=== PATIENT | male | born 1955 | race Caucasian/White ===

== ENCOUNTER 2017-02-02 17:22 | Inpatient (IN) | payer OTHER ==
[~2017-02-02] VITALS: Ht 175.3 cm; Wt 78.4 kg
--- NOTE | 2017-02-02 17:50 | NUR ---
ADMIT TO [facility]transferred from [facility] Report received from Harris/DEBRA at [place] ED. Pt brought onto unit via Ambulance service at 1750. Pt able to stand but unsteady and weak. SBA for safety for all OOB activity. Pt denies pain and SOB. Exhibits shaking arm tremors R>L. BG in room is 100. Pt having no immediate s/sx of distress. Pt oriented to unit, room and call light. Belongings placed in closet, non-skid Y socks on. MD informed of pt arrival, awaiting orders. Addendum: 02/02/17 at 2030 by MIGUEL CARTER RN Orders in, IVF started, seizure precautions in place, yunior alarm on, tele placed: SR 80. MED REC completed - pt bad historian, Harris/DEBRA at [place] stated that Med Rec was accurate and in chart. Med rec done according chart, pt reported last taking of medications. Admit finished.
[2017-02-02 17:58] VITALS: BP 122/71; PULSE 77; RESP 20; O2SAT 99
[2017-02-02] MEDS ORDERED: Polyethylene Glycol (PEG) 17 Gm Powder PO PRN (18:40)
[2017-02-02] MEDS ORDERED: Alum-Mag Hydrox-Simeth 30 mL Suspension PO PRN (18:40)
[2017-02-02] MEDS ORDERED: Ondansetron 2 mg/mL 2 mL Inj IVPUSH PRN (18:40)
[2017-02-02] MEDS ORDERED: Thiamine Inj 100 MG, Folic Acid Inj 1 MG, Magnesium Sulfate 50% Inj 2 GM, Multivitamins... IV ONE ×5 (18:45)
--- NOTE | 2017-02-02 19:29 | HP ---
[address] [address] HISTORY AND PHYSICAL PATIENT: DAVIN TOVAR : 1955 MR#: [id number] ADMIT: 02/02/2017 JOB ID: [id number] DATE OF SERVICE: 02/02/2017 PRIMARY CARE PROVIDER: Dr. Murphy out of [facility]. CHIEF COMPLAINT: Increasing fatigue and malaise. HISTORY OF PRESENT ILLNESS: This is a 61-year-old male who presented to [facility] as he had abnormal labs that were drawn on Wednesday. He did see his primary care provider last week, , as he was feeling more fatigued and noted that he had elevated BUN and creatinine (I do not have those labs in front of me), and mildly elevated LFTs. He then had repeat labs done on Wednesday which were more elevated and patient was told by his primary care provider to present to the emergency department. In the emergency department, he was found to be mildly hypotensive 95/55, heart rate of 70, temperature was 98.2. The patient denies any history of fevers, chills or cough. He is a current smoker; half pack per day. In the emergency department, his labs returned back showing a white count of 9.2, hematocrit 34.0. UA was negative for any acute abnormalities. His sodium was 128, potassium 3.4, bicarb was 25, alk phos was 164, AST was 1607, ALT was 740, magnesium 2.1, phosphorus 4.3, BUN was 66, creatinine 4.4, with a calculated GFR 14.28. Alcohol level was noted to be 32. UDS was negative. The patient did get some IV fluids while in the emergency department here. The emergency department doctor at [place] talked Dr. Weir, Nephrology, who accepted the patient in transfer to be admitted to the hospitalist service. PAST MEDICAL HISTORY: Significant for hypertension, history of hyperlipidemia, history of EtOH dependence. MEDICATIONS: Upon admission: 1. ASA 325 mg p.o. daily. 2. Atorvastatin 40 mg p.o. daily. 3. Cholecalciferol 4000 units daily. 4. Hydrochlorothiazide 25 mg p.o. daily. 5. Irbesartan 300 mg p.o. daily. 6. Metoprolol succinate, unknown dose daily. 7. [place]-3 three tabs daily. ALLERGIES: No known drug allergies. SOCIAL HISTORY: Lives alone. Smoking half pack per day. Alcohol: Several mixed drinks daily. Prior to that he was drinking beer. FAMILY MEDICAL HISTORY: No history of diabetes. There is a history of hypertension. REVIEW OF SYSTEMS: Does have some nausea. Denies any vomiting. Denies any abdominal pain. Denies any alteration of bowel movements. All other review of systems are reviewed and negative except for as in HPI. PHYSICAL EXAMINATION: Constitutional: A middle-aged male who appears slightly tremulous. Head: Normocephalic, atraumatic. Eyes: PERR, LADC, and EOMI. Mouth: No lesions. Neck: No adenopathy. Chest is clear to auscultation. Cor: Regular rate and rhythm. S1, S2 without murmur. Abdomen is soft, nontender. Bowel sounds present. Extremity exam reveals no pedal edema. Skin reveals no rashes. Psych: Mood and affect are appropriate. Neuro: He is alert and oriented x3, motor strength is intact bilaterally. No focal deficits noted. LABORATORY DATA: Labs as above. Also, to include white count 9.2, hemoglobin 11.9, hematocrit 34.0, MCV 98, 73% polys, 16% lymphs. Sodium 128, potassium 3.4, chloride 89, bicarb 25, calcium 8.6, total protein 6.0, albumin 2.8, total bili 1.6. Alk phos 164, AST 1607, ALT 740, magnesium 2.1. Phosphorus 4.0. Ammonia level 26. ASSESSMENT AND PLAN: 1. Acute kidney injury, present on admission. Check abdominal ultrasound. Repeat UA. Continue with IV fluids. Repeat labs in the a.m. Dr. Weir to see patient in a.m. 2. Acute elevated liver enzymes, present on admission. Does not have any elevation in bilirubin significantly, slight elevation in alkaline phosphatase. Of note, AST is much greater than the ALT which suggests alcoholic liver disease. Possible alcoholic hepatitis. Will check acute viral hepatitis panel. Will also check abdominal ultrasound. Monitor LFTs. Check PT, PTT. 3. Possible alcohol withdrawal, acute, present on admission. Will place on CIWA protocol. Give IV banana bag, per protocol. 4. Deep venous thrombosis prophylaxis. Will go ahead and use sequential compression devices. 5. Code status: Patient is FULL CODE. 6. Hypertension, chronic, present on admission. Will monitor blood pressure and not continue his irbesartan in light of acute renal failure along with not continuing his hydrochlorothiazide with acute kidney failure. TIME SPENT: 60 minutes.
[2017-02-02 19:52] VITALS: PULSE 78
--- NOTE | 2017-02-02 20:10 | DRSVH ---
PROCEDURE: US ABDOMEN INDICATIONS: yash,elevated LFTs TECHNIQUE: Real-time scanning was performed of the abdominal and retroperitoneal organs, with image documentatio n. COMPARISON: None. FINDINGS: Liver length: 14.39 cm Gallbladder Wall Thickness: 1.60 mm CHD: 4.80 mm CBD: 7.30 mm Spleen length: 8.29 cm Right kidney length: 10.02 cm Left kidney length: 10.79 cm Aorta(Proximal): 2.28 cm Aorta(Mid): 1.62 cm Aorta(Distal): 1.40 cm RCIA: 9.80 mm LCIA: 8.70 mm Liver: Homogeneous increased hepatic echotexture. No hepatic masses. Gallbladder: No cholelithiasis. Normal gallbladder wall thickness. No pericholecystic fluid. Negativ e sonographic Winter's sign. Biliary ducts: Intrahepatic bile ducts are non-dilated. Extrahepatic bile duct caliber is normal. Normal is 6-7 mm or less in diameter, or 10 mm or less post-cholecystectomy. Pancreas: Visualized portions of the pancreas are sonographically normal. Spleen: Spleen is normal in size and homogeneous in echotexture. Kidneys: Kidneys are normal in size and echotexture. No hydronephrosis or nephrolithiasis. No thee d masses. Aorta: Visualized aorta is normal in caliber at less than 3 cm. Iliacs: Proximal common iliac arteries are normal in caliber at less than 2.5 cm. IVC: Intrahepatic inferior vena cava is patent. Miscellaneous: No free abdominal fluid. IMPRESSION: Fatty infiltration of the liver. Dictated by: Wilton Mix M.D. on 02/02/2017 at 20:07 Approved by: Wilton Mix M.D. on 02/02/2017 at 20:08
[2017-02-02 20:11] VITALS: BP 111/62; PULSE 79; RESP 18; O2SAT 96
[2017-02-02] MEDS ORDERED: HYDR25TA4 PO (20:19)
[2017-02-02] MEDS ORDERED: OMEG100T PO (20:19)
[2017-02-02] MEDS ORDERED: IRBE300T18 PO (20:19)
[2017-02-02] MEDS ORDERED: ASPI325T32 PO (20:19)
[2017-02-02] MEDS ORDERED: METO200T4 PO (20:19)
[2017-02-02] MEDS ORDERED: ATOR40TA69 PO (20:19)
[2017-02-02] MEDS ORDERED: CHOL500051 PO (20:19)
[2017-02-02 21:15] LABS: INR 1.28 ratio
[2017-02-02 21:30] LABS: Magnesium 2.2 mg/dL (1.6-2.6); Phosphorus 3.2 mg/dL (2.5-4.9); TROPONIN T 0.01 ug/L (0.0-0.011)
[2017-02-02] MEDS: 0.9% Sodium Chloride 1,000 ML IV SCH (21:54)
[2017-02-03] VITALS (7 sets, daily range): BP systolic 114–129; BP diastolic 65–77; PULSE 69–76; RESP 18–20; O2SAT 96–97
--- NOTE | 2017-02-03 05:17 | NUR ---
NOC CIWA pt is alert and oriented. Scored 3 on CIWA. Seizure pads as per ciwa protocol. Pt is alert and oriented. Mildly anxious. No visible tremors but is felt. No visual, auditory, tactile hallucinations. Denies chest pain, sob, n/v or abd discomfort. IVF NS running 100ml/hr as ordered. Continuing to monitor.
[2017-02-03 05:43] LABS: BASOPHILS % (AUTO) 0.6 % (0-3); EOSINOPHILS % (AUTO) 3.1 % (0-5); MONOCYTES % (AUTO) 11.3 % (4-12); Mean Corpuscular Hemoglobin 33.6 pg (27.0-35.0); Mean Corpuscular Volume 91.9 fL (81-100); NEUTROPHILS % (AUTO) 58.9 % (40-74); Platelet Count 173 bil/L (150-400)
[2017-02-03 06:05] LABS: Magnesium 2.3 mg/dL (1.6-2.6)
[2017-02-03 07:12] LABS: Hepatitis A Antibody IgM Negative (Negative); Hepatitis B Core Antibody IgM Negative (Negative)
[2017-02-03 08:10] LABS: Vitamin B12 >1999 pg/mL (211-946)
[2017-02-03] MEDS ORDERED: KCl 40 mEq/D5W 500 mL 40 MEQ in IV Premix 1 EACH IV ONE (08:50)
[2017-02-03] MEDS: 0.9% Sodium Chloride 1,000 ML IV SCH ×2 (08:55→14:40)
[2017-02-03] MEDS: Multivit-Miner-Folic Acid-Iron Tablet PO SCH (08:55)
--- NOTE | 2017-02-03 09:03 | PCM.PNMED ---
Subjective Date of Service Feb 03, 2017 Subjective He is feeling better. Less tremor, no hallucinations. No nausea. No coughm, chest pain or dyspnea. No dysuria or flank pain. No overnight events noted. Exam Vital Signs Vital Sign - Last Date Time Temp Pulse Resp B/P Pulse Ox O2 Delivery O2 Flow Rate FiO2 02/03/17 04:46 36.8 69 18 129/77 97 Room Air Intake and Output 02/02/17 02/02/17 02/03/17 Cumulative From/Thru 15:00 23:00 07:00 02/02/17 18:01 - 02/03/17 06:21 Intake Total 473 ml 2392 ml 2865 ml Output Total 325 ml 1350 ml 1675 ml Balance 148 ml 1042 ml 1190 ml Intake Oral 473 ml 600 ml 1073 ml IV Total 1792 ml 1792 ml Output Urine Total 325 ml 1350 ml 1675 ml # Voids 1 1 # Bowel Movements 0 1 1 Exam Alert and oriented. Not confused. Fluent speech. Anicteric sclera Lungs clear with normal effort Heart regular, without murmur Abdomen soft and non distended. No leg edema Left arm ecchymosis IVs and Medications Medications Reviewed: Medications were reviewed in detail Lab and Diagnostics Result Diagram: 02/03/1751402/03/17514 Assessment & Plan 1. Acute kidney injury, present on admission. Check abdominal ultrasound. Repeat UA. Continue with IV fluids. The patient likely has a component of CKD as well. Repeat BMP at noon after IVF. 2. Acute elevated liver enzymes (alcohol induced hepatitis), present on admission. Does not have any elevation in bilirubin significantly, slight elevation in alkaline phosphatase. Of note, AST is much greater than the ALT which suggests alcoholic liver disease. Possible alcoholic hepatitis. Will check acute viral hepatitis panel. Will also check abdominal ultrasound. Monitor LFTs. Check PT, PTT. -follow clinically 3. Mild aalcohol withdrawal, acute, present on admission and improving. Will place on CIWA protocol. Give IV banana bag, per protocol. Continue today. Appears to be mild. 4. Deep venous thrombosis prophylaxis. Will go ahead and use sequential compression devices. 5. Code status: Patient is FULL CODE. 6. Essential hypertension, chronic, present on admission. Will monitor blood pressure and not continue his irbesartan in light of acute renal failure along with not continuing his hydrochlorothiazide with acute kidney failure. TIME SPENT: 60 minutes. Inpatient status, 2 nights stay expected. Probable discharge to home. Po Albrecht MD Feb 03, 2017 09:03
--- NOTE | 2017-02-03 10:13 | CONS ---
[address] [address] CONSULTATION REPORT PATIENT: DAVIN TOVAR : 1955 MR#: [id number] ADMIT: 02/02/2017 JOB ID: [id number] CORRECTED REPORT: DATE OF SERVICE: 02/03/2017 HISTORY OF PRESENT ILLNESS: The patient is a 61-year-old, white male, who was transferred to [facility] from [facility] for acute kidney injury and possible alcoholic hepatitis. Renal consultation is being sought for further evaluation of his acute kidney injury. I was contacted yesterday by the emergency department at [place] where the patient had come to after being referred from his primary care doctor for acute kidney injury. At that time, his BUN and creatinine were 66 and 4.4, and he was hypotensive but did respond to normal saline. After consultation with the emergency department physician, I recommended that he be continued on fluids, and be transferred here for further evaluation. The patient states that he had some blood drawn about a week ago by his family physician, and he was contacted subsequent to this that his blood tests were abnormal. He was asked to come in this past Wednesday for a followup blood test which once again was abnormal and subsequently yesterday he was referred to the emergency department for further evaluation. In the emergency department, his AST was 1607, ALT was 740, BUN and creatinine were 66 and 4.4, respectively. His alcohol level was also positive. However, his urine drug screen was negative. The patient is somewhat of an inconsistent historian and, apparently was feeling somewhat fatigued for several days prior to admission. He denies any severe headache, scotomas, amaurosis fugax, nausea, vomiting, diarrhea, decreased appetite, cough, wheezing, orthopnea, paroxysmal nocturnal dyspnea, or lower extremity edema. Furthermore, he states that he has not had any skin rashes, upper respiratory tract infection symptoms, arthralgias, or joint effusions. He denies any fever or chills. He denies a history of any prior renal problems. There is no history of any voiding difficulties, proteinuria, hematuria, recurrent urinary tract infections, renal lithiasis, prior history of hepatitis, lupus, diabetes, rheumatoid arthritis, or other associated renal problems. He does have a history of hypertension and hyperlipidemia for which he takes atorvastatin, hydrochlorothiazide, irbesartan, and metoprolol. Furthermore, he states that he does smoke less than one pack of cigarettes a day and drinks several mixed drinks per day. He also admits to occasional marijuana use. Upon arrival to [facility], he was started on IV normal saline and CIWA protocol. Abdominal ultrasound was obtained and showed some fatty infiltration, increased echogenicity of the liver without evidence of any cholecystitis or cholelithiasis. His renal ultrasound was negative. His blood pressure has improved with ongoing hydration, as has his laboratory values. This morning, his sodium is 133, potassium 3.1, BUN and creatinine were 47 and 2.94, and his liver function studies are markedly improved. PAST MEDICAL HISTORY: Significant for hypertension, hyperlipidemia, alcoholism. He denies a history of any prior stroke, seizure, asthma, emphysema, tuberculosis, myocardial infarction, coronary artery disease, congestive heart failure, thyroid illness, malignancy, gastric or colonic problems. PAST SURGICAL HISTORY: Negative. ALLERGIES: He is not allergic to any food or any medications. SOCIAL HISTORY: He lives alone and smokes less than a pack a day, and states that he drinks several mixed drinks daily. He also states he uses marijuana occasionally. He is active in his activities of daily living and works full-time. FAMILY HISTORY: Remarkable for hypertension, but no history of any prior diabetes or renal disease. REVIEW OF SYSTEMS: As detailed above in the HPI. MEDICATIONS: Also detailed above in the HPI. He denies the use of any acetaminophen or nonsteroidal anti-inflammatories, and denies any herbal medications. PHYSICAL EXAMINATION: Revealed a tanned, somewhat zahira complected, 61-year-old, gentleman, who was alert and oriented x3, in no distress at time of my evaluation. His blood pressure is 122/70, with a pulse rate of 70. HEENT examination is remarkable for multiple telangiectasias throughout his face. Sclerae, cornea, conjunctivae, pupils, and extraocular muscles were within normal limits. Neck is supple without adenopathy, thyromegaly or jugular venous distention. Lungs are clear to auscultation. Heart is regular and rhythmical with a soft systolic murmur. Abdomen is soft, with diminished bowel sounds noted. There was no tenderness, rebound, guarding, masses, and there appeared to be some mild hepatomegaly. There was no splenomegaly or other masses noted. Extremities did not show any evidence of any clubbing, cyanosis, or edema. Half and half nails were noted. Skin turgor was slightly diminished and there was no evidence of any rashes or any joint effusions. LABORATORY EXAMINATION: As noted above. His sodium is 133, potassium 3.1, chloride 95, bicarbonate 19, BUN and creatinine were 47 and 2.94, glucose was 96, calcium was 7.5. Total bili was 1.4. AST is lower at 906, with an ALT of 482 and alkaline phosphatase at 159. His albumin is 2.7. Triglycerides were 1119, with a cholesterol of 144. Lipase is slightly elevated at 182, and this most likely is reflective of his acute kidney injury. Hepatitis profile was negative for hepatitis A, B or C. His white count this morning is 7.8, hemoglobin of 10.3, hematocrit 28.2. Red cell indices, platelet count and differential were normal. There is no urinalysis at the time of my dictation. IMPRESSION: 1. Acute dehydration, which is resolving. 2. Acute kidney injury, which is resolving. 3. Acute transaminitis secondary to hypotension, but also possible alcoholic hepatitis. 4. Metabolic acidosis. 5. Hypokalemia. 6. Hypertension with hypertensive heart disease and hypertensive nephrosclerosis. RECOMMENDATIONS: I would like to continue him on IV hydration and replace electrolytes as needed. I would also like to get an echocardiogram to see if there is a coexistent alcoholic cardiomyopathy. We need to continue to follow him, not only to follow his laboratory parameters but also for possible alcohol withdrawal. Once again, I would like to thank you for allowing me to participate in the care of this most pleasant, interesting patient. I will be following him closely with you. Corrected by BIBI 02/11/17 at 8:22am DOS.
--- NOTE | 2017-02-03 10:58 | NUR ---
Social Work-initial assessment/multidisciplinary rounds: Data:See initial assessment. Pt is a 61 y/o male who was admitted on 02/02/17 for acute renal failure per H&P. Pt's insurance is [employer] and PCP is Ally Murphy MD. EMR Reviewed. Pt's readmission score is 3-high risk. SW met with pt to discuss discharge planning, SW role explained. Pt is alert and oriented x3. Pt resides at home alone in [place] where he remains independent with ADLs. Pt drives and does not use any DME. Pt has no HH or SNF history. Pt has no vermin exterminator care insurance or VA benefits. Pt declining any information regarding DPOA/ advanced directive at this time. Pt has been placed on CIWA, current CIWA is 3. No MD orders for CD assessment at this time. SW provided pt with discharge planning checklist and encouraged pt to call with any questions, phone number placed on white board in room. No concerns noted in morning rounds regarding pt's capacity for self care, from MD television news reporter. Pt to either get a ride from family or pay privately for a taxi at discharge. No anticipated discharge needs. SW will continue to follow if needs arise. Assessment:Pt who is independent at baseline. Plan:Anticipate pt to discharge home when medically stable via POV. No MD orders for CD assessment at this time, SW to follow. No anticipated discharge needs. SW will continue to follow if needs arise. ALICJA Magallon Addendum: 02/03/17 at 1103 by MRAY BEARDEN Amended: Links added.
[2017-02-03 12:54] LABS: Magnesium 2.1 mg/dL (1.6-2.6)
[2017-02-03 13:15] LABS: Phosphorus 0.7 mg/dL (2.5-4.9)
[2017-02-03] MEDS ORDERED: Potassium Phos (mEq) Inj 40 MEQ in Dextrose 5% 500 ML IV ONE (13:30)
--- NOTE | 2017-02-03 19:42 | NUR ---
Mentation/Activity/Electrolytes Pt A/Ox4, continued slightly delayed response but answering questions faster than day upon admit. CIWA score reduced from NOC 3 > 2. Mild tremors. MD in room to evaluate, Seizure pads to be removed per MD. Pt continuing on SBA for OOB activity, little unsteady when up to BR. No near falls during shift. Pt cooperative and follows instruction. Crit Lab called for Phosphate of 0.7. MD paged, orders placed for IV Phosphate bag. Repeat Phos level shows improvement to 1.3. IV continuing to infuse.
--- NOTE | 2017-02-04 00:19 | NUR ---
activity patient prefers to stay in bed at this time declines going to walk. given apple juice. resting supine. care ongoing.
[2017-02-04 00:35] VITALS: BP 139/70; PULSE 75; RESP 20; O2SAT 96
[2017-02-04] MEDS: 0.9% Sodium Chloride 1,000 ML IV SCH ×3 (04:16→20:40)
[2017-02-04 04:18] VITALS: BP 147/76; PULSE 76; RESP 18; O2SAT 97
[2017-02-04 06:12] LABS: Magnesium 1.5 mg/dL (1.6-2.6); Phosphorus 1.7 mg/dL (2.5-4.9)
[2017-02-04] MEDS ORDERED: Magnesium Sulf 4 Gm/100 mL H2O 4 GM in IV Premix 1 EACH IV ONE (07:00)
[2017-02-04] MEDS ORDERED: Potassium Phos (mMol) Inj 30 MMOL in Dextrose 5% 500 ML IV ONE (07:00)
[2017-02-04] MEDS ORDERED: POTASSIUM PHOS IV ONE ×2 (07:20→19:00)
[2017-02-04] MEDS ORDERED: DEXTROSE 5% IV ONE (07:20)
[2017-02-04 08:00] VITALS: PULSE 71
[2017-02-04] MEDS: Multivit-Miner-Folic Acid-Iron Tablet PO SCH (08:02)
[2017-02-04 08:30] VITALS: BP 144/52; PULSE 65; RESP 20; O2SAT 96
--- NOTE | 2017-02-04 11:09 | PCM.PNNEPH ---
Subjective Date of Service Feb 04, 2017 Subjective Overall patient's condition continues to improve. As a result of improvement in his renal function his his electrolytes have had a number of abnormalities which are currently being addressed and replaced. He remains alert and oriented and denies any chest pain, short of breath, but did have some nausea this morning which she relates to eating too much food. In the last 24 hours he has had 3524 in and 1350 out with 650 out already today. This morning his sodium is 136, potassium 3.2, chloride of 100 bicarbonate 22 BUN and creatinine were 23 and 1.83 respectively. His phosphorus morning is 1.7 with a magnesium of 1.5. His liver function studies are still abnormal but continue to trend downward. His ROMEL was negative. Exam Vital Signs Vital Sign - Last Date Time Temp Pulse Resp B/P Pulse Ox O2 Delivery O2 Flow Rate FiO2 02/04/17 08:30 37.2 65 20 144/52 96 Room Air Intake and Output 02/03/17 02/03/17 02/04/17 Cumulative From/Thru 15:00 23:00 07:00 02/02/17 18:01 - 02/04/17 05:46 Intake Total 1132 ml 962 ml 4959 ml Output Total 650 ml 2325 ml Balance 1132 ml 312 ml 2634 ml Intake Oral 200 ml 1273 ml IV Total 1132 ml 762 ml 3686 ml Output Urine Total 650 ml 2325 ml # Voids 0 1 # Bowel Movements 1 Exam HEENT examination was unremarkable. Neck is supple without adenopathy, thyromegaly, or jugular venous distention. Lungs are clear to auscultation. Heart is regular and rhythmical with a soft systolic murmur. Abdomen is soft without any tenderness rebound guarding masses or hepatosplenomegaly. Strongly Eleuterio evidence of any clubbing, cyanosis, or edema. Skin turgor is good nurse no evidence of any rashes. Lab and Diagnostics Result Diagram: 02/03/17 0515 02/04/17 05 Plan Impression Impression #1 dehydration which is resolving #2 acute kidney injury secondary to #1 which is resolving #3 hypokalemia which is resolving number for hypophosphatemia #5 hypomagnesemia and #6 metabolic acidosis #7 hypertension with hypertensive heart disease and hypertensive nephrosclerosis. Recommendations #10 continue to replace his potassium, phosphorus, and magnesium. If this is stable tomorrow we can probably discharge the next 1-2 days. Rashawn Weir DO Feb 04, 2017 11:09
--- NOTE | 2017-02-04 11:31 | DRSVH ---
[facility] [address] [place] [address] Echocardiogram Report Name: DAVIN TOVAR Kike e: 02/03/2017 Height: 6 9 in Hospital Exam Location: [facility] Weight: 1 72 lb Gender: Male BSA: 1.9 m2 : 1955 Age: 61 yrs BP: 122/7 0 mmHg Reason For Study: HTN/KRYSTAL Ordering Physician: HOSPITALIST [facility] Performed By: Bridgette Sotelo Referring Physician: Sathya Ellington Interpretation Summary The left ventricle is normal in size. Left ventricular systolic function is normal. The ejection fraction is estimated to be 55-60%. There are no obvious focal wall motion abnormalities noted but poor endocardial definition reduces the sensitivity for the detection of such. Assessment of diastolic parameters indicates a relaxation abnormality of the left ventricle, consistent with normal filling pressures. The right ventricle is not well visualized. Pulmonary artery pressures cannot be estimated because of the lack of a measurable TR jet velocity. The left atrium is borderline dilated. There is no significant valvular heart disease. The aortic root is normal size. Procedure: A two-dimensional transthoracic echocardiogram with color flow and Doppler was performed. The study quality was technically difficult. A contrast injection of Definity was performed to improve assessment of LV function. There is no prior echocardiogram noted for this patient. The patient was in normal sinus rhythm during the exam. Left Ventricle: The left ventricle is normal in size. There is normal left ventricular wall thickness. Left ventricular systolic function is normal. The ejection fraction is estimated to be 55-60%. There are no obvious focal wall motion abnormalities noted but poor endocardial definition reduces the sensitivity for the detection of such. Assessment of diastolic parameters indicates a relaxation abnormality of the left ventricle, consistent with normal filling pressures. Right Ventricle: The right ventricle is not well visualized. Atria: The left atrium is borderline dilated. The right atrium is normal in size. There is no Doppler evidence for an interatrial shunt. Mitral Valve: The mitral valve is normal. There is trace mitral regurgitation. Aortic Valve: The aortic valve is slightly calcified. The aortic valve is trileaflet. The aortic valve opens well. There is no hemodynamically significant valvular aortic stenosis. No aortic regurgitation is present. Tricuspid Valve: The tricuspid valve is normal. There is a trace or physiologic amount of tricuspid regurgitation. Pulmonary artery pressures cannot be estimated because of the lack of a measurable TR jet velocity. Pulmonic Valve: The pulmonic valve is not well visualized. There is a trace or physiologic amount of pulmonic regurgitation. There is no significant valvular heart disease. Great Vessels: The aortic root is normal size. The ascending aorta is normal in size. The aortic arch could not be visualized. The pulmonary artery is not well visualized, but is probably normal size. The IVC is dilated (diameter is greater than 2.1 cm) yet it collapses greater than 50% with a sniff. This suggests a right atrial pressure of 8 mm Hg. Pericardium/ Pleura There is no pericardial effusion. There is an anterior echo-free space consistent with a fat pad. There is no pleural effusion. MMode/2D Measurements & Calculations LVIDd: 5.0 cm RA long axis LVOT diam LVIDs: 3.4 cm LA A2 area: 19.5 cm FS: 32.8 % LA A4 area: 17.9 cm RA area AoV Opening EPSS: 0.43 cm LA length (vol): 4.5 cm IVSd: 1.0 cm LA vol: 66.6 ml : 16.1 cm Ao root diam LVPWd: 0.94 cm LA vol index RA vol : 47.8 ml asc Aorta RA Diam: 3.3 cm IVC diam: 2.2 cm : 24.7 mm2 LV escobar. diameter/BSA LV sys. diameter/BSA TAPSE: 2.1 cm (cm/m^2): 2.6 (cm/m^2): 1.7 Doppler Measurements & Calculations Ao V2 max MV E max rubén MV E/A: 1.6 PA V2 max : 113.7 cm/sec : 98.5 cm/sec Med Peak E' Rubén : 88.2 cm/sec Ao max PG MV A max rubén PA mean PG : 5.2 mmHg : 59.7 cm/sec E/E' med: 7.4 Ao mean PG MV P1/2t: 51.4 msec Lat Peak E' Rubén PA Accel Time : 0.09 sec LVOT Max Rubén E/E' lat: 7.3 : 97.6 cm/sec E/e' average: 7.4 TOÑO(I,D): 3.4 cm sev ratio MV dec time MV P1/2t max rubén Ao V2 mean LV V1 max PG : 0.17 sec : 76.5 cm/sec Ao V2 VTI: 20.7 cm LV V1 VTI MVA(P1/2t): 4.3 cm2 : 17.6 cm TOÑO(V,D): 3.4 cm2 PA V2 mean TOÑO indexed to BSA : 64.0 cm/sec (cm^2/m^2): 1.7 Reading Physician:PM
[2017-02-04 12:22] VITALS: BP 124/69; PULSE 75; RESP 18; O2SAT 97
--- NOTE | 2017-02-04 14:00 | PCM.PNMED ---
Subjective Date of Service Feb 04, 2017 Subjective Insulin much better today. No alcohol. Symptoms. She denies anxiety, hallucinations. No diarrhea or nausea. His appetite is improving. No shortness of breath fevers. His phosphorus was low yesterday and the day before. He has been repleted on a daily basis and still is 1.7 today. She does recognize that all cause causing significant problem and does not tend to stop. No overnight events noted. Exam Vital Signs Vital Sign - Last Date Time Temp Pulse Resp B/P Pulse Ox O2 Delivery O2 Flow Rate FiO2 02/04/17 12:22 36.8 75 18 124/69 97 Room Air Intake and Output 02/03/17 02/03/17 02/04/17 Cumulative From/Thru 15:00 23:00 07:00 02/02/17 18:01 - 02/04/17 05:46 Intake Total 1132 ml 962 ml 4959 ml Output Total 650 ml 2325 ml Balance 1132 ml 312 ml 2634 ml Intake Oral 200 ml 1273 ml IV Total 1132 ml 762 ml 3686 ml Output Urine Total 650 ml 2325 ml # Voids 0 1 # Bowel Movements 1 Exam Alert and oriented -3, no distress. Fluent speech Anicteric sclera. Lungs are clear with normal rate and effort Heart is regular without murmur gallop or rub Abdomen soft nontender, flat Extremities are free of edema. Skin is free of rash or lesions. IVs and Medications Medications Reviewed: Medications were reviewed in detail Lab and Diagnostics Result Diagram: 02/03/17 0515 02/04/17 0524 Assessment & Plan 1. Acute kidney injury, present on admission. Improving. ultrasound unremarkable. Repeat UA unremarkable. Continue with IV fluids. The patient likely has a component of CKD as well. 2. Acute elevated liver enzymes (alcohol induced hepatitis), present on admission. Improving -follow clinically 3. Mild aalcohol withdrawal, acute, present on admission and resolved. CIWA discontinued. Ativan when necessary anxiety. 4. Hypophosphatemia, present on admission and active. Improving. Continue repletion today with follow-up. 5. Essential hypertension, chronic, present on admission, active and stable. Will monitor blood pressure and not continue his irbesartan in light of acute renal failure along with not continuing his hydrochlorothiazide with acute kidney failure. Continue DVT prophylaxis, ambulate. Inpatient status, 2 nights stay expected. Probable discharge Wednesday to home. Po Albrecht MD Feb 04, 2017 14:00
--- NOTE | 2017-02-04 16:57 | NUR ---
Activity: Encouraged patient throughout day to be ambulating and at least up to chair for meals. Patient states he is comfortable and prefers to stay in bed. However, patient did agree to get up for dinner meal. Tolerating well, call-light within reach, non-skid socks on for safety. Continued encouragement to be OOB for meals and begin ambulating in hallways. Patient agreed.
[2017-02-04] MEDS ORDERED: SODIUM CHLORIDE 0.9% IV ONE (19:00)
[2017-02-04 20:56] VITALS: BP 135/68; PULSE 73; RESP 20; O2SAT 96
--- NOTE | 2017-02-05 01:48 | NUR ---
Potassium / Calcium About assisted through second admin of IV potassium the CMP was drawn and based on results another order was placed for admin @ 19:00 02/04/17 even though potassium was still infusing. Huang paged Dr St to determine if a new CMP should be drawn before admin of 3rd dose. CMP ordered and potassium level determined to be 3.4 mEq, the order indicated any value <4 the third dose should be admin. CMP also returned Calcium @6.7 MD notified and aware of value.
[2017-02-05] MEDS: 0.9% Sodium Chloride 1,000 ML IV SCH ×3 (01:58→23:00)
[2017-02-05 04:17] VITALS: BP 164/79; PULSE 77; RESP 20; O2SAT 97
--- NOTE | 2017-02-05 08:48 | PCM.PNMED ---
Subjective Date of Service Feb 05, 2017 Subjective Patient seen and examined. Alert and oriented X 3. No complaints. Still shaking. Vitals stable. Exam Vital Signs Vital Sign - Last Date Time Temp Pulse Resp B/P Pulse Ox O2 Delivery O2 Flow Rate FiO2 02/05/17 04:17 37.3 77 20 164/79 97 Room Air Intake and Output 02/04/17 02/04/17 02/05/17 Cumulative From/Thru 15:00 23:00 07:00 02/02/17 18:01 - 02/05/17 05:05 Intake Total 2022 ml 6981 ml Output Total 300 ml 2625 ml Balance 1722 ml 4356 ml Intake Oral 822 ml 2095 ml IV Total 1200 ml 4886 ml Output Urine Total 300 ml 2625 ml # Voids 3 4 # Bowel Movements 2 3 Exam Constitutional: A middle-aged male who appears slightly tremulous. Head:Normocephalic, atraumatic. Eyes: PERR, LADC, and EOMI. Mouth: No lesions. Neck: No adenopathy. Chest is clear to auscultation. Cor: Regular rate and rhythm. S1, S2 without murmur. Abdomen is soft, nontender. Bowel sounds present. Extremity exam reveals no pedal edema. Skin reveals no rashes. Psych: Mood and affect are appropriate. Neuro: He is alert and oriented x3, motor strength is intact bilaterally. No focal deficits noted. Lab and Diagnostics Result Diagram: 02/03/17 0502/04/172111 Assessment & Plan 1. Acute kidney injury, present on admission. Improving. ultrasound unremarkable. Repeat UA unremarkable. Continue with IV fluids. The patient likely has a component of CKD as well. 2. Acute elevated liver enzymes (alcohol induced hepatitis), present on admission. Improving - continue to trend 3. Mild aalcohol withdrawal, acute, present on admission and resolved. CIWA discontinued. Ativan when necessary anxiety. 4. Hypophosphatemia, present on admission and active. Improving. Continue repletion today with follow-up. 5. Essential hypertension, chronic, present on admission, active and stable. Will monitor blood pressure and not continue his irbesartan in light of acute renal failure along with not continuing his hydrochlorothiazide with acute kidney failure. BP elevated today, will start patient on amlodipine Continue DVT prophylaxis, ambulate. Inpatient status, 2 nights stay expected. Time spent 35 mins Abdiel Lama MD Feb 05, 2017 08:48
[2017-02-05] MEDS: Multivit-Miner-Folic Acid-Iron Tablet PO SCH (09:11)
[2017-02-05 09:17] VITALS: BP 161/81; PULSE 90; RESP 18; O2SAT 98
[2017-02-05 09:33] LABS: BASOPHILS % (AUTO) 0.3 % (0-3); EOSINOPHILS % (AUTO) 3.6 % (0-5); MONOCYTES % (AUTO) 8.4 % (4-12); Mean Corpuscular Hemoglobin 33.9 pg (27.0-35.0); Mean Corpuscular Volume 93.9 fL (81-100); NEUTROPHILS % (AUTO) 51.4 % (40-74); Platelet Count 127 bil/L (150-400)
[2017-02-05 09:50] LABS: Magnesium 1.5 mg/dL (1.6-2.6); Phosphorus 2.5 mg/dL (2.5-4.9)
--- NOTE | 2017-02-05 11:37 | PCM.PNNEPH ---
Subjective Date of Service Feb 05, 2017 Subjective Patient's renal and liver function continued to improve. She is alert and awake he does have some increased tremor noted. He denies any headache, chest pain, nausea or vomiting. Last 24 hours she said 2984 in 1950. This morning his sodium is 136, potassium 3.5, chloride 101, bicarbonate 20, BUN and creatinine were 8 and 1.2 respectively. His liver functions continued to improve and his phosphorus is 2.5 with a magnesium of 1.5. His echocardiogram showed normal ejection fraction and normal left ventricular size and shape. There was some evidence of early diastolic dysfunction noted. Exam Vital Signs Vital Sign - Last Date Time Temp Pulse Resp B/P Pulse Ox O2 Delivery O2 Flow Rate FiO2 02/05/17 09: 36.9 90 18 161/81 98 Room Air Intake and Output 02/04/17 02/04/17 02/05/17 Cumulative From/Thru 15:00 23:00 07:00 02/02/17 18:01 - 02/05/17 05:05 Intake Total 2022 ml 6981 ml Output Total 300 ml 2625 ml Balance 1722 ml 4356 ml Intake Oral 822 ml 2095 ml IV Total 1200 ml 4886 ml Output Urine Total 300 ml 2625 ml # Voids 3 4 # Bowel Movements 2 3 Exam Neck supple without adenopathy, thyromegaly, jugular venous distention. Lungs are clear to auscultation. Heart was regular and rhythmical with soft systolic murmur. Abdomen soft without any tenderness rebound or guarding no masses or hepatosplenomegaly. Extremities show any evidence of any clubbing, cyanosis, or edema. There is no evidence of any rashes. Lab and Diagnostics Result Diagram: 02/05/1789902/05/17 09 Plan Impression Impression #1 acute kidney injury secondary to dehydration which is resolving # 2 acute alcoholic hepatitis which is resolving #3 hypokalemia which is resolving number for hypophosphatemia which is resolving #5 hypomagnesemia which is resolving #6 hypertension with hypertensive heart disease and hypertensive nephrosclerosis with diastolic dysfunction. Dictation #1 we will go ahead and give him some mag sulfate replacement along with potassium phosphate. Most likely he can be discharged tomorrow. Rashawn Weir DO Feb 05, 2017 11:37
[2017-02-05] MEDS ORDERED: Magnesium Sulf 4 Gm/100 mL H2O 4 GM in IV Premix 1 EACH IV ONE (11:40)
[2017-02-05] MEDS ORDERED: Sodium-Potassium Phosphorus Packet PO ONE ×2 (11:40→21:00)
[2017-02-05] MEDS ORDERED: Calcium Carbonate 1250 mg/5 mL Suspension PO ONE (12:30)
[2017-02-05 12:44] VITALS: BP 155/80; PULSE 87; RESP 18; O2SAT 95
--- NOTE | 2017-02-05 19:29 | NUR ---
Critical calcium/activity. Lab called with critical calcium at 1000 AM, reading at 6.9. made aware. Recieved order to replete with po calcium carbonate. Pt. has worked with PT this afternoon, was able to ambulate in harmon with sba. Mild tremers noted in arms and hands, pt. a little unsteady on feet. Reports that it is from "being in bed too long." Pt. denies pain or discomfort. Cooperative with care. Care continues.
[2017-02-05 21:01] VITALS: BP 134/69; PULSE 95; RESP 18; O2SAT 95
[2017-02-06] VITALS (8 sets, daily range): BP systolic 103–170; BP diastolic 62–96; PULSE 94–158; RESP 16–20; O2SAT 94–97
[2017-02-06 06:17] LABS: Bilirubin, Direct 0.5 mg/dL (0.0-0.3); Magnesium 1.9 mg/dL (1.6-2.6); Phosphorus 2.8 mg/dL (2.5-4.9)
--- NOTE | 2017-02-06 09:07 | PCM.PNMED ---
Subjective Date of Service Feb 06, 2017 Subjective Patient seen and examined. Alert and oriented, however still tremulous. Vitals noted. Exam Vital Signs Vital Sign - Last Date Time Temp Pulse Resp B/P Pulse Ox O2 Delivery O2 Flow Rate FiO2 02/06/17 04:20 36.7 98 18 170/96 96 Room Air Intake and Output 02/05/17 02/05/17 02/06/17 Cumulative From/Thru 15:00 23:00 07:00 02/02/17 18:01 - 02/06/17 06:52 Intake Total 600 ml 4166 ml 1773 ml 86423 ml Output Total 1075 ml 1600 ml 275 ml 5575 ml Balance -475 ml 2566 ml 1498 ml 7945 ml Intake Oral 600 ml 1136 ml 473 ml 4304 ml IV Total 3030 ml 1300 ml 9216 ml Output Urine Total 1075 ml 1600 ml 275 ml 5575 ml # Voids 1 5 # Bowel Movements 0 2 1 6 Exam Constitutional: A middle-aged male who appears slightly tremulous. Head:Normocephalic, atraumatic. Eyes: PERR, LADC, and EOMI. Mouth: No lesions. Neck: No adenopathy. Chest is clear to auscultation. Cor: Regular rate and rhythm. S1, S2 without murmur. Abdomen is soft, nontender. Bowel sounds present. Extremity exam reveals no pedal edema. Skin reveals no rashes. Psych: Mood and affect are appropriate. Neuro: He is alert and oriented x3, motor strength is intact bilaterally. No focal deficits noted. Lab and Diagnostics Result Diagram: 02/05/17 0900 02/06/17 0532 Assessment & Plan 1. Acute kidney injury, present on admission. Improving. ultrasound unremarkable. Repeat UA unremarkable. Continue with IV fluids. The patient likely has a component of CKD as well. 2. Acute elevated liver enzymes (alcohol induced hepatitis), present on admission. Improving - continue to trend down -likely 2/2 alcohol induced hepatitis 3. Mild alcohol withdrawal, acute, present on admission and resolved. CIWA discontinued. Ativan when necessary anxiety. 4. Hypophosphatemia, present on admission and active. Improved. 5. Essential hypertension, chronic, present on admission, active and stable. Will monitor blood pressure and not continue his irbesartan in light of acute renal failure along with not continuing his hydrochlorothiazide with acute kidney failure. likely 2/2 to withdrawl , labile continue amlodipine Continue DVT prophylaxis, ambulate. Inpatient status, 2 nights stay expected. Time spent 35 mins Abdiel Lama MD Feb 06, 2017 09:07
--- NOTE | 2017-02-06 12:06 | NUR ---
Social Work-readiness for discharge/multidisciplinary rounds: Data:EMR reviewed. Pt is on day 4 of hospitalization for acute renal failure per H&P. Pt is likely medically stable later today or tomorrow. MD order received for HH services. PT recommending home with HH services and FWW. SW followed up with pt at bedside, SW role explained. SW discussed recommendation of HH services, HH choice list provided. Pt has no agency preference. SW referred to rotating calendar and made referral to [facility] for RN and PT. KAYLAN confirmed with Cristina at [facility] that they do contract with pt's insurance and she can accept referral, SW provided access. SW discussed Fww, pt declined SW setting up fww and states he will obtain this on his own. No MD order received for any CD assessment from KAYLAN. Pt states his boss will provide transport home at discharge. F2F to be completed by . SW will continue to follow. Assessment:pt who would benefit from HH. Plan:Pt to discharge home when medically stable via POV. Pt declining Fww. Referral has been made to [facility] for RN and PT, access given. F2F to be completed by . KAYLAN will continue to follow. Nazia Castillo,EQUIPMENT MAINTENANCE SUPERVISOR
--- NOTE | 2017-02-06 12:07 | NUR ---
choice list provided. ALICJA Magallon
[2017-02-06] MEDS: Multivit-Miner-Folic Acid-Iron Tablet PO SCH (12:22)
--- NOTE | 2017-02-06 12:22 | PCM.PNNEPH ---
Subjective Date of Service Feb 06, 2017 Subjective Patient's laboratory has improved today. Last 24-hour she has had 4766 in and 2675 out. Morning his home sodium is 141, potassium 3.5, chloride 106, bicarbonate 22, BUN and creatinine were 6 and 0.98. His phosphorus is 2.8 and magnesium was 1.9. From my point of discharge per the primary team. Exam Vital Signs Vital Sign - Last Date Time Temp Pulse Resp B/P Pulse Ox O2 Delivery O2 Flow Rate FiO2 02/06/17 10:40 158 Room Air 02/06/17 09:07 36.6 17 103/62 94 Intake and Output 02/05/17 02/05/17 02/06/17 Cumulative From/Thru 15:00 23:00 07:00 02/02/17 18:01 - 02/06/17 06:52 Intake Total 600 ml 4166 ml 1773 ml 08042 ml Output Total 1075 ml 1600 ml 275 ml 5575 ml Balance -475 ml 2566 ml 1498 ml 7945 ml Intake Oral 600 ml 1136 ml 473 ml 4304 ml IV Total 3030 ml 1300 ml 9216 ml Output Urine Total 1075 ml 1600 ml 275 ml 5575 ml # Voids 1 5 # Bowel Movements 0 2 1 6 Lab and Diagnostics Result Diagram: 02/05/17 0900 02/06/17 0532 Rashawn Weir DO Feb 06, 2017 12:22
[2017-02-06] MEDS: 0.9% Sodium Chloride 1,000 ML IV SCH ×2 (12:40→22:40)
[2017-02-06] MEDS ORDERED: CHLO10CA6 PO (16:35)
--- NOTE | 2017-02-06 16:37 | PCM.DIMED ---
Discharge Instructions Date of Service Feb 06, 2017 Dates of Hospitalization Feb 02, 2017 at 17:46 Discharge Diagnosis Discharge Diagnosis KRYSTAL Alcohol hepatitis Diet Discharge Diet: Other (High in potassium and magnesium ) Patient Instructions Follow-up with PCP in: 1 week (Follow up CMP to assess liver function, abdominal US ) Abdiel Lama MD Feb 06, 2017 16:37
[2017-02-06] MEDS ORDERED: LORazepam 2 mg Tablet PO PRN (18:05)
--- NOTE | 2017-02-06 18:05 | NUR ---
Tele/tremors Pt. has been given initial dose of librium. No side effects reported. Tele reading Sinus tach, 112, very slight tremors visible. Pt. was anticipating to be discharged. Education on anxiety, withdrawals and librium dosing done with Dr. Lama at the bedside; pt. agreeable and understanding about continued observation. Pt. currently resting, care continues.
[2017-02-07 04:21] VITALS: BP 156/86; PULSE 91; RESP 16; O2SAT 95
[2017-02-07 06:06] LABS: BASOPHILS % (AUTO) 0.4 % (0-3); EOSINOPHILS % (AUTO) 6.4 % (0-5); MONOCYTES % (AUTO) 9.5 % (4-12); Mean Corpuscular Hemoglobin 33.7 pg (27.0-35.0); Mean Corpuscular Volume 96.3 fL (81-100); NEUTROPHILS % (AUTO) 53.3 % (40-74); Platelet Count 140 bil/L (150-400)
[2017-02-07 06:10] VITALS: PULSE 99
--- NOTE | 2017-02-07 06:51 | NUR ---
Uneventful Night Pt denies any pain,n/v/sob/fever/chills. Tele: SR 90S PVCs per plastic eye technician. Minimal s/s ETHO withdraw except mild sweat, last drink 3 weeks ago per pt. Lorazepam given for sleep per due to insomnia. VSS, afebrile.
[2017-02-07 08:00] VITALS: PULSE 93
[2017-02-07] MEDS ORDERED: LORA-305 PO (08:17)
[2017-02-07] MEDS ORDERED: Thiamine PO (08:21)
[2017-02-07] MEDS ORDERED: AMLO5TAB2 PO (08:22)
--- NOTE | 2017-02-07 08:25 | PCM.DC.MED ---
Discharge Summary Date of Service Feb 07, 2017 Dates of Hospitalization Date of Hospital Admission Feb 02, 2017 at 17:46 Date of Discharge: Feb 07, 2017 Providers: Admitting Physician: Holly Sigala MD Primary Care Physician: Ruel Murphy DO Attending Physician: Reji Ferguson MD Diagnosis at Time of Discharge Diagnosis at Time of Discharge KRYSTAL Alcohol hepatitis Brief History This is a 61-year-old male who presented to [facility] as he had abnormal labs that were drawn on Wednesday. He did see his primary care provider last week, , as he was feeling more fatigued and noted that he had elevated BUN and creatinine (I do not have those labs in front of me), and mildly elevated LFTs. He then had repeat labs done on Wednesday which were more elevated and patient was told by his primary care provider to present to the emergency department. In the emergency department, he was found to be mildly hypotensive 95/55, heart rate of 70, temperature was 98.2. The patient denies any history of fevers, chills or cough. He is a current smoker; half pack per day. In the emergency department, his labs returned back showing a white count of 9.2, hematocrit 34.0. UA was negative for any acute abnormalities. His sodium was 128, potassium 3.4, bicarb was 25, alk phos was 164, AST was 1607, ALT was 740, magnesium 2.1, phosphorus 4.3, BUN was 66, creatinine 4.4, with a calculated GFR 14.28. Alcohol level was noted to be 32. UDS was negative. The patient did get some IV fluids while in the emergency department here. The emergency department doctor at [facility] talked Dr. Weir, Nephrology, who accepted the patient in transfer to be admitted to the hospitalist service. Hospital Course 1. Acute kidney injury, present on admission. Resolved ultrasound unremarkable. - held diuretics for now 2. Acute elevated liver enzymes (alcohol induced hepatitis), present on admission. Improving - continue to trend down -likely 2/2 alcohol induced hepatitis 3. Mild alcohol withdrawal, acute, present on admission and resolving. given librium and lorezapam 4. Hypophosphatemia, present on admission and active. Improved. 5. Essential hypertension, chronic, present on admission, active and stable. held s irbesartan in light of acute renal failure along with not continuing his hydrochlorothiazide with acute kidney failure. likely 2/2 to withdrawl , labile continue amlodipine and metoprolol Exam Vital Signs (Last) Date Time Temp Pulse Resp B/P Pulse Ox O2 Delivery O2 Flow Rate FiO2 02/07/17 06:10 99 02/07/17 04:21 37.1 16 156/86 95 Room Air Test 02/02/17 20:43 02/02/17 20:44 02/03/17 05:15 02/03/17 12:10 Prothrombin Time 13.8sec (8.1-12.5) Prothromb Time International Ratio 1.28ratio Ammonia 17ug/dL (18-53) Troponin T 0.010ug/L (0.0-0.011) Lipase 182U/L (13-60) Vitamin B12 Level >1999pg/mL (211-946) Hepatitis A IgM Antibody Negative (Negative) Hepatitis B Surface Antigen Negative (Negative) Hepatitis B Core IgM Antibody Negative (Negative) Hepatitis C Antibody <0.1s/co ratio (0.0-0.9) Hepatitis C Comment Comment (.) Hold Joy Top Tube Received (Received) Triglycerides Level 1119mg/dL (0-149) Cholesterol Level 144mg/dL (100-199) LDL Cholesterol, Calculated -86.800mg/dL (0-99) VLDL Cholesterol 223.800mg/dL HDL Cholesterol 7mg/dL (>39) Cholesterol/HDL Ratio 20.57 (0.0-4.4) Anti-Nuclear Antibody Screen Negative (Negative) Test 02/04/17 11:05 02/06/17 05:32 02/07/17 05:40 Activated Partial Thromboplast Time 23.5sec (22.8-33.0) Phosphorus Level 2.8mg/dL (2.5-4.9) Magnesium Level 1.9mg/dL (1.6-2.6) Direct Bilirubin 0.5mg/dL (0.0-0.3) White Blood Count 11.0th/mm3 (3.8-10.1) Red Blood Count 2.73mil/mm3 (4.40-5.80) Hemoglobin 9.2g/dL (13.8-17.2) Hematocrit 26.3% (41.0-50.0) Mean Corpuscular Volume 96.3fL (81-100) Mean Corpuscular Hemoglobin 33.7pg (27.0-35.0) Mean Corpuscular Hemoglobin Concent 35.0% (32.0-37.0) Red Cell Distribution Width 14.2% (12.3-15.4) Platelet Count 140bil/L (150-400) Neutrophils (%) (Auto) 53.3% (40-74) Lymphocytes (%) (Auto) 29.5% (14-46) Monocytes (%) (Auto) 9.5% (4-12) Eosinophils (%) (Auto) 6.4% (0-5) Basophils (%) (Auto) 0.4% (0-3) Sodium Level 139mEq/L (134-144) Potassium Level 3.7mEq/L (3.5-5.2) Chloride Level 104mEq/L (97-108) Carbon Dioxide Level 22mmol/L (18-29) Blood Urea Nitrogen 5mg/dL (8-27) Creatinine 0.88mg/dL (0.76-1.27) Estimat Glomerular Filtration Rate 94mL/min (>59) Glucose Level 86mg/dL (60-99) Calcium Level 8.5mg/dL (8.5-10.1) Total Bilirubin 0.9mg/dL (0.0-1.2) Aspartate Amino Transf (AST/SGOT) 60U/L (0-50) Alanine Aminotransferase (ALT/SGPT) 114U/L (0-44) Alkaline Phosphatase 200U/L (25-160) Total Protein 5.2g/dL (6.4-8.4) Albumin 2.6g/dL (3.4-5.0) Discharge Medications Discharge Medications ([Thiamine]) 100 MG TABLET 100 MG PO DAILY Prescribed by: REJI FERGUSON MD Amlodipine (Amlodipine) 5 Mg Tablet 10 MG PO DAILY Prescribed by: REJI FERGUSON MD Aspirin (Aspirin) 325 Mg Tablet 325 MG PO DAILY (Reported) Atorvastatin Calcium (Atorvastatin Calcium) 40 Mg Tablet 40 MG PO DAILY ( Reported) Cholecalciferol (Vitamin D3) (Vitamin D) 5,000 Unit Capsule 4,000 UNIT PO DAILY (Reported) Hydrochlorothiazide (Hydrochlorothiazide) 25 Mg Tablet 25 MG PO DAILY (Reported ) Irbesartan (Irbesartan) 300 Mg Tablet 300 MG PO DAILY (Reported) Metoprolol Succinate ER (Metoprolol Succinate ER) 200 Mg Tab.er.24h 200 MG PO DAILY (Reported) [place]-3 Fatty Acids ([place]-3) 100 Mg Tab.chew 3 TABLET PO DAILY (Reported) As needed Chlordiazepoxide (Chlordiazepoxide) 10 Mg Capsule 10 MG PO Q6H PRN PRN For Anxiety Prescribed by: REJI FERGUSON MD Lorazepam (Ativan) 2 Mg Tablet 2 MG PO BID PRN PRN For Anxiety or Agitation Prescribed by: REJI FERGUSON MD Followup Plan Discharge Diet: Other (High in potassium and magnesium ) Follow-up with PCP in: 1 week (Follow up CMP to assess liver function, abdominal US ) Time spent 35 mins Reji Ferguson MD Feb 07, 2017 08:25
[2017-02-07 08:39] VITALS: BP 157/89; PULSE 100; RESP 18; O2SAT 95
[2017-02-07] MEDS: 0.9% Sodium Chloride 1,000 ML IV SCH (08:40)
[2017-02-07] MEDS: Multivit-Miner-Folic Acid-Iron Tablet PO SCH (09:12)
--- NOTE | 2017-02-07 10:38 | NUR ---
Social Work: Discharge Data & Assessment: EMR reviewed. Patient is on day 5 of hospitalization for acute renal failure per H&P. Patient was discussed in morning rounds. Patient has been deemed medically stable for discharge per MD. Patient will discharge home. PT has evaluated patient and a recommendation has been made for home health PT and FWW. Patient has declined to receive a FWW. MD has placed an order for home health PT. Patient has selected [facility] for services. has completed F2F. KAYLAN called and spoke to Cristina @ [facility]. KAYLAN informed Cristina that patient is being discharged today and that F2F has been completed. KAYLAN has faxed F2F to [facility] per Cristina's request. Transportation needs will be arranged by patient. Patient has no additional needs at this time. Plan: Patient will discharge home today. Patient will receive in-home PT with [facility]. Transportation has been arranged by patient. Patient has no additional needs at this time. ALICJA Gao
--- NOTE | 2017-02-07 11:00 | NUR ---
Discharged of patient reviewed discharged instructions with patient. Patient verbalized understanding. Pt left hospital via wheelchair with prescriptions and instructions. Tele and IV previously discontinued. Pt left with friend to home self care.
== END 2017-02-07 10:30 | disposition home health service (06) | DRG 683 ==
LOC: MPC 17:46
PROVIDERS: ADMIT Specialist; ATTEND Specialist
DX: N17.9 Acute kidney failure, unspecified (principal); F10.239 Alcohol dependence with withdrawal, unspecified; E87.2 Acidosis; E78.5 Hyperlipidemia, unspecified; F17.210 Nicotine dependence, cigarettes, uncomplicated; K70.10 Alcoholic hepatitis without ascites; E86.0 Dehydration; E87.6 Hypokalemia; I13.10 Hypertensive heart and chronic kidney disease without heart failure, with stage 1 through stage 4 chronic kidney disease, or unspecified chronic kidney disease; N18.9 Chronic kidney disease, unspecified; E83.42 Hypomagnesemia; E83.39 Other disorders of phosphorus metabolism